=== PATIENT | male | born 1950 | race Caucasian/White ===

== ENCOUNTER 2018-10-28 21:06 | Inpatient (IN) | payer MEDICARE, OTHER ==
[~2018-10-28] VITALS: Ht 177.8 cm; Wt 71.0 kg
--- NOTE | 2018-10-28 21:23 | NUR ---
RAD COMPLETED AT BEDSIDE
[2018-10-28] MEDS ORDERED: ALBUTEROL SULFATE 2.5 MG/3 ML NPPB ONE (21:30)
[2018-10-28] MEDS ORDERED: SODIUM CHLORIDE FLUSH 10ML SYR IVF ONE (21:30)
[2018-10-28] MEDS ORDERED: ACETAMINOPHEN 325 MG TABLET PO ONE (21:30)
[2018-10-28] MEDS ORDERED: ALBUTEROL/IPRATROPIUM 2.5MG/0.5MG, 3 ML NPPB ONE (21:30)
[2018-10-28] MEDS ORDERED: ACETAMINOPHEN 325 MG TABLET ONE (21:31)
[2018-10-28] MEDS ORDERED: ALBUTEROL/IPRATROPIUM 2.5MG/0.5MG, 3 ML ONE (21:33)
--- NOTE | 2018-10-28 21:46 | NUR ---
PT MEDICATED FOR FEVER. LABS COLLECTED, RT PAGED FOR TREATMENT
[2018-10-28 21:48] LABS: BASOPHILS # (AUTO) 0.01 x10^3/uL (0-0.1); BASOPHILS % (AUTO) 0 % (0-1); EOSINOPHILS % (AUTO) 0 % (1-7); LYMPHOCYTES # (AUTO) 0.35 x10^3/uL (1-3.4); LYMPHOCYTES % (AUTO) 7 % (22-44); MD NO; MEAN CORPUSCULAR HEMOGLOBIN 31.5 pg (27.5-34.5); MEAN CORPUSCULAR HGB CONC 34.3 g/dL (33.2-36.2); MEAN CORPUSCULAR VOLUME 91.9 fL (81-97); MONOCYTES # (AUTO) 0.51 x10^3/uL (0.2-0.8); MONOCYTES % (AUTO) 10 % (2-9); NEUTROPHILS # (AUTO) 4.04 x10^3/uL (1.8-6.8); NEUTROPHILS % (AUTO) 82 % (42-75); PLATELET COUNT 169 x10^3/uL (130-400); RED BLOOD COUNT 3.83 x10^6/uL (4.38-5.82); RED CELL DISTRIBUTION WIDTH 15.1 % (9.4-14.8)
[2018-10-28 21:59] LABS: INTERNATIONAL NORMALIZED RATIO 1.17 (0.93-1.1); PROTHROMBIN TIME 12.2 Seconds (9.6-11.5)
[2018-10-28 22:00] LABS: ALANINE AMINOTRANSFERASE 35 U/L (12-78); ALBUMIN 3.6 g/dL (3.4-5.0); ANION GAP 6 mmol/L (5-15); CALCIUM 8.6 mg/dL (8.5-10.1); CHLORIDE 106 mmol/L (98-107); CREATININE 1.57 mg/dL (0.7-1.3)
[2018-10-28 22:05] LABS: ALKALINE PHOSPHATASE 89 U/L (45-117); BILIRUBIN,TOTAL 0.4 mg/dL (0.2-1.0); TROPONIN I 0.048 ng/mL (0.000-0.045)
--- NOTE | 2018-10-28 22:26 | NUR ---
PT SLEEPING IN BED, VSS. FLU SWAB COLLECTED AND SENT. AWAITING BLOOD CULTURES TO BE DRAWN THEN ABX TO BE ADMINISTERED. CALL LIGHT WITHIN REACH. AWAITING TESTING AND RESULTS AT THIS TIME
[2018-10-28] MEDS ORDERED: CEFTRIAXONE PMX 1GM/50ML 50 ML IV ONE (22:30)
[2018-10-28] MEDS ORDERED: AZITHROMYCIN 500 MG in SODIUM CHLORIDE 0.9% 250 ML IV ONE (22:30)
[2018-10-28] MEDS ORDERED: SODIUM CHLORIDE 0.9%, 500ML IVBOLUS ONE (22:30)
[2018-10-28] MEDS ORDERED: CEFTRIAXONE PMX 1GM/50ML 50 ML ONE (22:35)
--- NOTE | 2018-10-28 22:43 | NUR ---
BLOOD CULTURES COLLECTED, ABX STARTED PER MAR AFTER BLOOD CULTURES. FLUIDS RUNNING. NADN. NO COMPLAINTS FROM PT AT THIS TIME. CALL LIGHT WITHIN REACH. AWAITING CTA
[2018-10-28 22:55] LABS: RAPID INFLUENZA A POSITIVE (Negative); RAPID INFLUENZA B Negative (Negative)
--- NOTE | 2018-10-28 23:07 | NUR ---
REPORT GIVEN TO PIETRO SAUNDERS
--- NOTE | 2018-10-28 23:08 | NUR ---
BS REPORT OF PT FROM CHIP ESTRADA. ASSUMING CARE OF PT AT THIS TIME.
[2018-10-28] MEDS ORDERED: OMNIPAQUE 350 MG/ML, 100ML BOTTLE ONE (23:25)
--- NOTE | 2018-10-29 00:23 | NUR ---
pt sleeping in [facility] in this time; nadn. awaiting admit orders at this time.
[2018-10-29] MEDS ORDERED: OSELTAMIVIR 75 MG CAPSULE PO ONE (01:00)
[2018-10-29] MEDS ORDERED: ONDANSETRON 2MG/ML, 2ML IVPush PRN (01:00)
[2018-10-29] MEDS ORDERED: ACETAMINOPHEN 325 MG TABLET PO PRN (01:00)
[2018-10-29] MEDS ORDERED: LABETALOL 5MG/ML, 20ML IVPush PRN (01:00)
[2018-10-29] MEDS ORDERED: morphine SULFATE 10 MG/ML, 1ML IVPush PRN (01:00)
[2018-10-29] MEDS ORDERED: NITROGLYCERIN 0.4 MG BOTTLE (25 TABS) SL PRN (01:00)
[2018-10-29 01:17] LABS: TROPONIN I 0.069 ng/mL (0.000-0.045)
[2018-10-29 01:26] VITALS: BP 122/79
[2018-10-29 02:15] VITALS: BP 122/79
[2018-10-29] MEDS ORDERED: LABETALOL 5 MG/ML SYRINGE IVPush PRN (02:30)
[2018-10-29] MEDS: AZITHROMYCIN 500 MG in SODIUM CHLORIDE 0.9% 250 ML IV SCH (02:56)
[2018-10-29] MEDS: HEPARIN 5,000 UNITS/ML, 1ML SQ SCH ×3 (03:00→19:45)
[2018-10-29] MEDS: ASPIRIN 325 MG TABLET EC PO SCH (06:10)
[2018-10-29] MEDS: ALBUTEROL/IPRATROPIUM 2.5MG/0.5MG, 3 ML NPPB SCH ×4 (06:50→20:00)
[2018-10-29 08:09] VITALS: BP 105/68
[2018-10-29 10:49] LABS: AMPHETAMINE SCREEN, URINE Negative (Negative); BARBITURATE SCREEN, URINE Negative (Negative); BENZODIAZEPINE SCREEN, URINE Negative (Negative); CANNABINOID SCREEN, URINE Negative (Negative); COCAINE SCREEN, URINE Negative (Negative); METHADONE SCREEN, URINE Negative (Negative); OPIATE SCREEN, URINE Negative (Negative)
[2018-10-29] MEDS: BUDESONIDE 0.5 MG/2 ML INHA NPPB SCH ×2 (10:55→20:56)
[2018-10-29] MEDS: methylPREDNISolone SOD SUCC 40 MG/ML IV SCH ×2 (13:46→19:45)
[2018-10-29 14:41] VITALS: BP 103/47
[2018-10-29 20:36] VITALS: BP 118/72
[2018-10-29] MEDS: OSELTAMIVIR 75 MG CAPSULE PO SCH (22:08)
[2018-10-29] MEDS ORDERED: CEFTRIAXONE PMX 1GM/50ML 50 ML IV SCH (23:00)
[2018-10-30 00:19] VITALS: BP 121/75
[2018-10-30] MEDS: AZITHROMYCIN 500 MG in SODIUM CHLORIDE 0.9% 250 ML IV SCH (02:20)
[2018-10-30] MEDS: methylPREDNISolone SOD SUCC 40 MG/ML IV SCH ×4 (02:20→19:23)
[2018-10-30] MEDS: ASPIRIN 325 MG TABLET EC PO SCH (05:05)
[2018-10-30] MEDS: HEPARIN 5,000 UNITS/ML, 1ML SQ SCH ×3 (05:05→19:24)
[2018-10-30 06:06] LABS: BASOPHILS % (AUTO) 0 % (0-1); EOSINOPHILS % (AUTO) 0 % (1-7); LYMPHOCYTES # (AUTO) 0.39 x10^3/uL (1-3.4); LYMPHOCYTES % (AUTO) 4 % (22-44); MD NO; MEAN CORPUSCULAR HEMOGLOBIN 31.6 pg (27.5-34.5); MEAN CORPUSCULAR HGB CONC 33.7 g/dL (33.2-36.2); MEAN CORPUSCULAR VOLUME 93.8 fL (81-97); MEAN PLATELET VOLUME 8.6 fL (7.4-10.4); MONOCYTES # (AUTO) 0.35 x10^3/uL (0.2-0.8); MONOCYTES % (AUTO) 4 % (2-9); NEUTROPHILS # (AUTO) 9.12 x10^3/uL (1.8-6.8); NEUTROPHILS % (AUTO) 92 % (42-75); PLATELET COUNT 157 x10^3/uL (130-400); RED BLOOD COUNT 3.76 x10^6/uL (4.38-5.82); RED CELL DISTRIBUTION WIDTH 15.8 % (9.4-14.8)
[2018-10-30 06:14] LABS: CHLORIDE 107 mmol/L (98-107)
[2018-10-30 06:18] LABS: ANION GAP 6 mmol/L (5-15); CALCIUM 8.5 mg/dL (8.5-10.1); CHOL/HDL RATIO 2.8; CHOLESTEROL, TOTAL 118 mg/dL (140-239); HDL CHOL % 36 % (26-37); HDL CHOLESTEROL (DIRECT) 42 mg/dL (40-60); LDL CHOLESTEROL,CALCULATED 64 mg/dL (54-169); LDL/HDL RATIO 1.5 (0.5-3.0); TRIGLYCERIDES 59 mg/dL (50-200); VLDL CHOLESTEROL 12 mg/dL (0-25)
[2018-10-30 07:15] VITALS: BP 125/85
[2018-10-30] MEDS: ALBUTEROL/IPRATROPIUM 2.5MG/0.5MG, 3 ML NPPB SCH ×4 (07:30→18:34)
[2018-10-30] MEDS: BUDESONIDE 0.5 MG/2 ML INHA NPPB SCH ×2 (07:30→18:33)
[2018-10-30] MEDS: OSELTAMIVIR 75 MG CAPSULE PO SCH ×2 (08:51→20:25)
[2018-10-30 12:39] VITALS: BP 128/75
[2018-10-30 19:41] VITALS: BP 137/79
[2018-10-30] MEDS: NICOTINE 21 MG/24 HR PATCH.TD24 TD SCH (21:43)
[2018-10-31 00:37] VITALS: BP 140/82
[2018-10-31] MEDS: methylPREDNISolone SOD SUCC 40 MG/ML IV SCH ×4 (02:03→20:27)
[2018-10-31] MEDS: AZITHROMYCIN 500 MG in SODIUM CHLORIDE 0.9% 250 ML IV SCH (02:03)
[2018-10-31] MEDS: HEPARIN 5,000 UNITS/ML, 1ML SQ SCH ×3 (03:52→20:27)
[2018-10-31] MEDS: ASPIRIN 325 MG TABLET EC PO SCH (05:45)
[2018-10-31 06:52] VITALS: BP 127/86
[2018-10-31 06:57] LABS: MEAN CORPUSCULAR HEMOGLOBIN 30.5 pg (27.5-34.5); MEAN CORPUSCULAR HGB CONC 32.7 g/dL (33.2-36.2); MEAN CORPUSCULAR VOLUME 93.3 fL (81-97); MEAN PLATELET VOLUME 8.5 fL (7.4-10.4); PLATELET COUNT 190 x10^3/uL (130-400); RED BLOOD COUNT 4.03 x10^6/uL (4.38-5.82); RED CELL DISTRIBUTION WIDTH 15.9 % (9.4-14.8)
[2018-10-31 07:00] LABS: ANION GAP 6 mmol/L (5-15); CALCIUM 9.4 mg/dL (8.5-10.1); CHLORIDE 107 mmol/L (98-107); CREATININE 1.17 mg/dL (0.7-1.3)
[2018-10-31] MEDS: ALBUTEROL/IPRATROPIUM 2.5MG/0.5MG, 3 ML NPPB SCH ×4 (07:00→20:00)
[2018-10-31 07:39] LABS: MD YES
[2018-10-31 07:40] LABS: <RBC MORPHOLOGY> NORMAL; BAND#(MANUAL) 0.61 x10^3/uL; BANDS%(MANUAL) 4 % (0-7); LYMPH#(MANUAL) 0.77 x10^3/uL (1-3.4); LYMPHS% (MANUAL) 5 % (22-44); MONOS#(MANUAL) 0.92 x10^3/uL (0.3-2.7); MONOS% (MANUAL) 6 % (2-9); SEG#(MANUAL) 13.01 x10^3/uL (1.8-6.8); SEGS% (MANUAL) 85 % (42-75)
[2018-10-31 07:41] LABS: <PLATELET ESTIMATE> ADEQUATE; <PLT MORPHOLOGY> NORMAL PLT MORPH
[2018-10-31] MEDS: OSELTAMIVIR 75 MG CAPSULE PO SCH ×2 (08:26→20:27)
[2018-10-31] MEDS: BUDESONIDE 0.5 MG/2 ML INHA NPPB SCH ×2 (09:00→20:24)
[2018-10-31 13:12] VITALS: BP 134/81
[2018-10-31] MEDS: CARVEDILOL 3.125 MG TABLET PO SCH (18:14)
[2018-10-31 19:59] VITALS: BP 148/90
[2018-10-31] MEDS: NICOTINE 21 MG/24 HR PATCH.TD24 TD SCH (20:27)
[2018-10-31] MEDS ORDERED: ATORVASTATIN 20 MG TABLET PO SCH (21:00)
[2018-11-01 00:38] VITALS: BP 137/89
[2018-11-01] MEDS: methylPREDNISolone SOD SUCC 40 MG/ML IV SCH ×2 (01:13→08:46)
[2018-11-01] MEDS: AZITHROMYCIN 500 MG in SODIUM CHLORIDE 0.9% 250 ML IV SCH (02:34)
[2018-11-01] MEDS: HEPARIN 5,000 UNITS/ML, 1ML SQ SCH (03:57)
[2018-11-01 05:26] LABS: MEAN CORPUSCULAR HEMOGLOBIN 30.3 pg (27.5-34.5); MEAN CORPUSCULAR HGB CONC 32.7 g/dL (33.2-36.2); MEAN CORPUSCULAR VOLUME 92.6 fL (81-97); MEAN PLATELET VOLUME 8.8 fL (7.4-10.4); PLATELET COUNT 184 x10^3/uL (130-400); RED BLOOD COUNT 4.04 x10^6/uL (4.38-5.82); RED CELL DISTRIBUTION WIDTH 15.7 % (9.4-14.8)
[2018-11-01] MEDS: CARVEDILOL 3.125 MG TABLET PO SCH (05:27)
[2018-11-01] MEDS: ASPIRIN 325 MG TABLET EC PO SCH (05:27)
[2018-11-01 05:41] LABS: ANION GAP 9 mmol/L (5-15); CALCIUM 8.7 mg/dL (8.5-10.1); CHLORIDE 109 mmol/L (98-107)
[2018-11-01 05:49] LABS: BASOPHILS % (AUTO) 0 % (0-1); EOSINOPHILS % (AUTO) 0 % (1-7); LYMPHOCYTES # (AUTO) 0.53 x10^3/uL (1-3.4); LYMPHOCYTES % (AUTO) 4 % (22-44); MD SCAN; MONOCYTES # (AUTO) 0.59 x10^3/uL (0.2-0.8); MONOCYTES % (AUTO) 5 % (2-9); NEUTROPHILS # (AUTO) 12.04 x10^3/uL (1.8-6.8); NEUTROPHILS % (AUTO) 92 % (42-75)
[2018-11-01] MEDS: BUDESONIDE 0.5 MG/2 ML INHA NPPB SCH (06:53)
[2018-11-01] MEDS: ALBUTEROL/IPRATROPIUM 2.5MG/0.5MG, 3 ML NPPB SCH ×2 (06:53→11:09)
[2018-11-01 07:00] VITALS: BP 141/88
[2018-11-01] MEDS: OSELTAMIVIR 75 MG CAPSULE PO SCH (08:46)
[2018-11-01] MEDS ORDERED: LISINOPRIL 5 MG TABLET PO SCH (09:00)
[2018-11-01] MEDS ORDERED: ASPI-650 PO (11:06)
[2018-11-01] MEDS ORDERED: METH4TAB2 PO (11:06)
[2018-11-01] MEDS ORDERED: LISI5TAB7 PO (11:06)
[2018-11-01] MEDS ORDERED: CARV3.1212 PO (11:06)
[2018-11-01] MEDS ORDERED: BUDE0.5A NPPB (11:06)
[2018-11-01] MEDS ORDERED: OSEL75CA PO (11:06)
[2018-11-01] MEDS ORDERED: ATOR20TA37 PO (11:06)
== END 2018-11-01 15:11 | disposition home or self-care (01) | DRG 871 ==
LOC: ED 23:59 → EDIP 10-29 00:15 → 5SO 10-29 01:56
PROVIDERS: ADMIT Family Medicine; ATTEND Family Medicine
DX: A41.9 Sepsis, unspecified organism (principal); J96.01 Acute respiratory failure with hypoxia; N17.9 Acute kidney failure, unspecified; J44.1 Chronic obstructive pulmonary disease with (acute) exacerbation; J44.0 Chronic obstructive pulmonary disease with (acute) lower respiratory infection; J10.1 Influenza due to other identified influenza virus with other respiratory manifestations; F12.90 Cannabis use, unspecified, uncomplicated; F15.90 Other stimulant use, unspecified, uncomplicated; F17.210 Nicotine dependence, cigarettes, uncomplicated; I49.3 Ventricular premature depolarization; I50.9 Heart failure, unspecified; Z82.49 Family history of ischemic heart disease and other diseases of the circulatory system
CPT/HCPCS: 36415; 71045; 71275; 80048; 80053; 80061; 80307; 83605; 83735; 83880; 84100; 84132; 84484; 85025; 85610; 85730; 87040; 87070; 87205; 87400; 93005; 93306; 94640; 99291; G0378; J0456; J0696; J1644; J7613; J7620; J7626; Q9967; J2920; J7040; J7050; J7512